=== PATIENT | female | born 1975 | race Two or more races ===

== ENCOUNTER 2020-03-13 09:00 | Day surgery (SDC) | payer OTHER ==
[~2020-03-13 09:00] MED LIST: DRAMAMINE LESS25 MG PO; YASMIN 28 TABLE1 TAB
[2020-03-13] MEDS ORDERED: PERCOCET 5-3251 EACH PO (16:14)
[2020-03-13] MEDS ORDERED: NEURONTIN300 MG PO (16:15)
[2020-03-13] MEDS ORDERED: KETO10TA2 PO (16:15)
== END 2020-03-13 17:50 | disposition home or self-care (01) ==
LOC: CIR.AMB 09:00
PROVIDERS: ATTEND Surgery
DX: K64.3 Fourth degree hemorrhoids (principal); K64.8 Other hemorrhoids; K64.4 Residual hemorrhoidal skin tags; K62.0 Anal polyp; Z20.828 Contact with and (suspected) exposure to other viral communicable diseases